=== PATIENT | female | born 1985 | race Caucasian/White ===

== ENCOUNTER → 2017-12-27 | Emergency (ER) | payer OTHER ==
[~2017-12-27] VITALS: Ht 165.1 cm; Wt 77.1 kg
== END | disposition home or self-care (01) ==
LOC: ER 15:35
DX: B34.9 Viral infection, unspecified (principal); R50.9 Fever, unspecified

== ENCOUNTER 2020-08-27 10:40 | Emergency (ER) | payer OTHER ==
[~2020-08-27] VITALS: Ht 165.1 cm; Wt 87.5 kg
[2020-08-27] MEDS ORDERED: FOLITAB 500 CA1 EACH PO (17:19)
[2020-08-27] MEDS ORDERED: INTESTINEX680 M1 PO (17:19)
[2020-08-27] MEDS ORDERED: PEPCID AC20 MG PO (17:19)
[2020-08-27] MEDS ORDERED: LEVSIN/SL0.125 MG SL (17:19)
== END 2020-08-27 17:33 | disposition home or self-care (01) ==
LOC: ER 10:40
DX: K52.89 Other specified noninfective gastroenteritis and colitis (principal); E86.0 Dehydration; Z03.818 Encounter for observation for suspected exposure to other biological agents ruled out

== ENCOUNTER 2021-07-01 11:44 | Emergency (ER) | payer OTHER ==
[~2021-07-01] VITALS: Ht 165.1 cm; Wt 78.5 kg
[~2021-07-01 11:44] MED LIST: FOLITAB 500 CA1 EACH PO; INTESTINEX680 M1 PO; LEVSIN/SL0.125 MG SL; PEPCID AC20 MG PO
== END 2021-07-01 16:49 | disposition home or self-care (01) ==
LOC: ER 11:44 → EMR PED 11:44 → ER 13:36
DX: R19.7 Diarrhea, unspecified (principal)

== ENCOUNTER 2021-08-28 14:16 | Emergency (ER) | payer OTHER ==
[~2021-08-28] VITALS: Ht 165.1 cm; Wt 86.2 kg
[2021-08-28] MEDS ORDERED: IRON325 MG PO (18:08)
== END 2021-08-28 18:43 | disposition home or self-care (01) ==
LOC: ER 14:16
DX: K29.60 Other gastritis without bleeding (principal); Z03.818 Encounter for observation for suspected exposure to other biological agents ruled out

== ENCOUNTER 2023-05-29 15:38 | Inpatient (IN) | payer OTHER ==
[~2023-05-29] VITALS: Ht 165.1 cm; Wt 87.1 kg
[~2023-05-29 15:38] MED LIST changes: +IRON325 MG PO
--- NOTE | 2023-05-29 16:26 | NUR ---
PACIENTE ALERTA Y ORIENTADA X3, REFIERE TENER DOLOR ANDOMINAL Y NAUSEAS. SE MONITOREAN VS Y SE UBICA
--- NOTE | 2023-05-29 17:06 | NUR ---
SE EDUCA A PTE SOBRE TX MEDICO ESTA REFIERE ENTENDER, SE MONICA MUESTRAS DE LABORATORIO UTILIZANDO MEDIDAS ASEPTICAS. SE COLOCA H/L APTE Y SE ADMINISTRAN MEDICAMENTOS LOS CUALES TOLERA. SE NOTIFICA ESTUDIO DE CT PENDIENTE A REALIZAR.
== END 2023-06-02 16:54 | disposition home or self-care (01) | DRG 343 ==
LOC: ER 15:38 → SURG 21:54
PROVIDERS: Surgery; ADMIT Internal Medicine; ATTEND Internal Medicine
PROC: BW21YZZ Computerized Tomography (CT Scan) of Abdomen and Pelvis using Other Contrast (ICD-10-PCS; 2023-05-29)
PROC: 30233N1 Transfusion of Nonautologous Red Blood Cells into Peripheral Vein, Percutaneous Approach (ICD-10-PCS; 2023-05-30)
PROC: 0DTJ4ZZ Resection of Appendix, Percutaneous Endoscopic Approach (ICD-10-PCS; principal; 2023-05-30 20:00)
DX: K35.80 Unspecified acute appendicitis (principal); D64.9 Anemia, unspecified